=== PATIENT | male | born 1985 | race Caucasian/White ===

== ENCOUNTER 2017-11-18 22:21 | Emergency (ER) | payer MEDICAID ==
[~2017-11-18] VITALS: Ht 188 cm; Wt 106.6 kg
[2017-11-18 22:22] VITALS: BP 118/73
== END 2017-11-19 00:19 | disposition home or self-care (01) ==
LOC: ER 22:26
DX: M54.31 Sciatica, right side (principal); Z87.442 Personal history of urinary calculi
CPT/HCPCS: 99283; A4606; Z7610